=== PATIENT | female | born 1960 | race Asian ===

== ENCOUNTER → 2017-06-14 | Outpatient (CLI) | payer BC | END | disposition home or self-care (01) | LOC: CARD 08:27 | PROVIDERS: ATTEND Family Medicine | DX: I51.7 Cardiomegaly (principal); I10 Essential (primary) hypertension | CPT/HCPCS: 93017; 93350 ==

== ENCOUNTER → 2018-09-26 | Outpatient (CLI) | payer BC | END | disposition home or self-care (01) | LOC: CFH 08:24 | PROVIDERS: ATTEND Internal Medicine Cardiovascular Disease | DX: I08.3 Combined rheumatic disorders of mitral, aortic and tricuspid valves (principal); I10 Essential (primary) hypertension; R00.2 Palpitations | CPT/HCPCS: 93306 ==

== ENCOUNTER → 2019-10-09 | Outpatient (CLI) | payer BC | END | disposition home or self-care (01) | LOC: CVU 09:22 | PROVIDERS: ATTEND Internal Medicine Cardiovascular Disease | DX: I08.3 Combined rheumatic disorders of mitral, aortic and tricuspid valves (principal); I11.9 Hypertensive heart disease without heart failure | CPT/HCPCS: 93356; C8929; Q9957 ==